=== PATIENT | male | born 1985 | race Caucasian/White ===

== ENCOUNTER 2018-12-24 21:35 | Emergency (ER) | payer BC ==
[2018-12-24 21:50] VITALS: TEMP 98.6
[2018-12-24] MEDS ORDERED: SODIUM CHLORIDE 0.9% 1,000 ML IV STA (22:44)
[2018-12-24] MEDS ORDERED: KETOROLAC 30 MG/ML 1 ML VIAL IVP STA (22:45)
[2018-12-24] MEDS ORDERED: ONDANSETRON 4 MG/2 ML VIAL IVP STA (22:45)
[2018-12-24 23:16] LABS: Basophils # (A) 0.1 k/uL (0-0.2); Basophils % (A) 1 %; Eosinophils # (A) 0.4 k/uL (0-0.7); Eosinophils % (A) 3 %; HCT 49.5 % (39.0-53.0); HGB 16.6 gm/dL (13.0-17.5); Lymphocytes # (A) 3.2 k/uL (1.0-4.8); Lymphocytes % (A) 31 %; MCHC 33.6 g/dL (31.0-37.0); MCV 89.2 fL (80.0-100.0); Mean Platelet Volume 6.7; Monocytes # (A) 0.7 k/uL (0-1.0); Monocytes % (A) 7 %; Neutrophils % (A) 57 %; Platelet Count 238 k/uL (150-450); RBC 5.55 m/uL (4.30-5.90); RDW 12.8 % (11.5-15.5); WBC 10.5 k/uL (3.8-10.6)
[2018-12-24 23:23] LABS: Appearance,Urine Clear (Clear); Bilirubin,Urine Negative (Negative); Blood,Urine Negative (Negative); Color,Urine Colorless; Glucose,Urine (UA) Negative (Negative); Ketones,Urine Negative (Negative); Leukocyte Esterase,Urine Negative (Negative); Nitrite,Urine Negative (Negative); PH, Urine 5.5 (5.0-8.0); Protein,Urine Negative (Negative); Specific Gravity,Urine 1.003 (1.001-1.035); Urobilinogen,Urine <2.0 mg/dL (<2.0)
[2018-12-24 23:42] LABS: ALT 72 U/L (21-72); AST 46 U/L (17-59); African American GFR (CKD) >90 (>60 ml/min/1.73 sqM); Albumin 4.9 g/dL (3.5-5.0); Alkaline Phosphatase 60 U/L (38-126); Amylase 103 U/L (30-110); Anion Gap 15 mmol/L; Blood Urea Nitrogen 13 mg/dL (9-20); Calcium 9.2 mg/dL (8.4-10.2); Carbon Dioxide 23 mmol/L (22-30); Chloride 101 mmol/L (98-107); Glucose 90 mg/dL (74-99); Lipase 1046 U/L (23-300); Potassium 4.2 mmol/L (3.5-5.1); Sodium 139 mmol/L (137-145); Total Bilirubin 0.5 mg/dL (0.2-1.3); Total Protein 8.1 g/dL (6.3-8.2)
[2018-12-24] MEDS ORDERED: MORPHINE SULFATE 4 MG/ML SYRINGE IVP STA (23:52)
[2018-12-24] MEDS ORDERED: SODIUM CHLORIDE 0.9% 1,000 ML IV ONE (23:52)
--- NOTE | 2018-12-24 23:59 | ED ---
Abdominal Pain HPI - General Chief Complaint: Abdominal Pain Stated Complaint: back/abd pain Time Seen by Provider: 12/24/18 21:57 Source: patient Mode of arrival: ambulatory Limitations: no limitations - History of Present Illness Initial Comments: 33-year-old male patient presents the emergency department today for evaluation of mid thoracic back pain is radiating around to his abdomen. Patient states his been going on for the last 9 days. Patient states that he has been able to eat and drink without difficulty. Patient states that today the pain become unbearable so presented here for further evaluation. Patient denies any history of similar symptoms. He denies any radiation to his legs. He denies any nausea, vomiting, constipation, diarrhea. States he is urinating without difficulty. Denies fever or chills with this. States he has had left inguinal hernia surgery but no other abdominal surgeries. Denies taking any medication. Does admit to drinking 12 beers per night. Denies any street drug use. Patient denies any recent rash, shortness breath, chest pain, numbness, tingling, dizziness, weakness, hematuria, dysuria, urinary urgency, urinary frequency, headache, visual changes, or any other complaints. - Related Data Home Medications Medication Instructions Recorded Confirmed Unable To Assess [Unable to Assess] 12/24/18 12/24/18 Allergies Allergy/AdvReac Type Severity Reaction Status Date / Time Sulfa (Sulfonamide Allergy Swelling Verified 12/24/18 21:50 Antibiotics) Review of Systems ROS Statement: Those systems with pertinent positive or pertinent negative responses have been documented in the HPI. ROS Other: All systems not noted in ROS Statement are negative. Past Medical History Past Medical History: Hypertension History of Any Multi-Drug Resistant Organisms: None Reported Past Surgical History: Hernia Repair Past Psychological History: No Psychological Hx Reported Smoking Status: Current every day smoker Past Alcohol Use History: Daily Past Drug Use History: Marijuana General Exam Limitations: no limitations General appearance: alert, in no apparent distress, other (Physical well- developed, well-nourished adult male patient in no acute distress. Vital signs upon presentation are temperature 98.6F, pulse 89, respirations 20, blood pressure 163/82, pulse ox 97% on room air.) Eye exam: Present: normal appearance, PERRL, EOMI. Absent: scleral icterus, conjunctival injection, periorbital swelling ENT exam: Present: normal exam, normal oropharynx, mucous membranes moist Respiratory exam: Present: normal lung sounds bilaterally. Absent: respiratory distress, wheezes, rales, rhonchi, stridor Cardiovascular Exam: Present: regular rate, normal rhythm, normal heart sounds. Absent: systolic murmur, diastolic murmur, rubs, gallop, clicks GI/Abdominal exam: Present: soft, normal bowel sounds. Absent: distended, tenderness, guarding, rebound, rigid Neurological exam: Present: alert, oriented X3, CN II-XII intact Psychiatric exam: Present: normal affect, normal mood Skin exam: Present: warm, dry, intact, normal color. Absent: rash Course Vital Signs 12/24/18 12/25/18 21:46 01:16 Temperature 98.6 F Pulse Rate 89 80 Respiratory 20 16 Rate Blood Pressure 163/82 138/82 O2 Sat by Pulse 97 98 Oximetry Medical Decision Making - Medical Decision Making 33-year-old male patient presents to the emergency department today for evaluation of mid back pain that radiates to his abdomen. Physical examination is unremarkable. Abdomen is soft and nontender. He is afebrile, vital signs. Labs reviewed and did reveal elevated lipase at 1046. CT abdomen and pelvis was obtained and showed no acute abnormalities. No evidence of pancreatitis on the scan. I did discuss findings and results with the patient. Did recommend admission for IV hydration and pain management. Patient refused admission stating that he had to work tomorrow. I did discuss risks of discharge including worsening of his condition, infection, and . Patient verbalizes understanding of risks and would like to be discharged. He is instructed to maintain clear liquid diet. He is instructed to avoid alcohol use is instructed to follow-up with a primary care physician for recheck as soon as possible. Return parameters were discussed in detail. He verbalizes understanding and agrees with this plan. - Lab Data Result diagrams: 12/24/18 22:10 12/24/18 22:10 Lab Results 12/24/18 12/24/18 12/24/18 Range/Units 22:10 22:10 22:10 WBC 10.5 (3.8-10.6) k/uL RBC 5.55 (4.30-5.90) m/uL Hgb 16.6 (13.0-17.5) gm/dL Hct 49.5 (39.0-53.0) % MCV 89.2 (80.0-100.0) fL MCH 30.0 (25.0-35.0) pg MCHC 33.6 (31.0-37.0) g/dL RDW 12.8 (11.5-15.5) % Plt Count 238 (150-450) k/uL Neutrophils % 57 % Lymphocytes % 31 % Monocytes % 7 % Eosinophils % 3 % Basophils % 1 % Neutrophils # 6.0 (1.3-7.7) k/uL Lymphocytes # 3.2 (1.0-4.8) k/uL Monocytes # 0.7 (0-1.0) k/uL Eosinophils # 0.4 (0-0.7) k/uL Basophils # 0.1 (0-0.2) k/uL Sodium 139 (137-145) mmol/L Potassium 4.2 (3.5-5.1) mmol/L Chloride 101 (98-107) mmol/L Carbon Dioxide 23 (22-30) mmol/L Anion Gap 15 mmol/L BUN 13 (9-20) mg/dL Creatinine 0.84 (0.66-1.25) mg/dL Est GFR (CKD-EPI)AfAm >90 (>60 ml/min/1.73 sqM) Est GFR (CKD-EPI)NonAf >90 (>60 ml/min/1.73 sqM) Glucose 90 (74-99) mg/dL Calcium 9.2 (8.4-10.2) mg/dL Total Bilirubin 0.5 (0.2-1.3) mg/dL AST 46 (17-59) U/L ALT 72 (21-72) U/L Alkaline Phosphatase 60 (38-126) U/L Total Protein 8.1 (6.3-8.2) g/dL Albumin 4.9 (3.5-5.0) g/dL Amylase 103 (30-110) U/L Lipase 1046 H (23-300) U/L Urine Color Colorless Urine Appearance Clear (Clear) Urine pH 5.5 (5.0-8.0) Ur Specific [place] 1.003 (1.001-1.035) Urine Protein Negative (Negative) Urine Glucose (UA) Negative (Negative) Urine Ketones Negative (Negative) Urine Blood Negative (Negative) Urine Nitrite Negative (Negative) Urine Bilirubin Negative (Negative) Urine Urobilinogen <2.0 (<2.0) mg/dL Ur Leukocyte Esterase Negative (Negative) - Radiology Data Radiology results: report reviewed, image reviewed CT abdomen and pelvis was obtained. Report was reviewed in its entirety. Impression by Dr. Watts shows no acute findings. Disposition Clinical Impression: Pancreatitis Disposition: Left Against Medical Advice Condition: Stable Instructions (If sedation given, give patient instructions): Pancreatitis (ED), Low Fat Diet (ED), Clear Liquid Diet (ED) Additional Instructions: Increase fluids. Especially water. Follow-up through primary care physician for recheck in 1-2 days. Return to the emergency department immediately for any new, worsening, or concerning symptoms. Is patient prescribed a controlled substance at d/c from ED?: No Referrals: Gary Dee DO [Primary Care Provider] - 1-2 days Time of Disposition: 00:38
--- NOTE | 2018-12-25 00:05 | CT ---
EXAM: CT Abdomen and Pelvis With Intravenous Contrast CLINICAL HISTORY: abdominal pain TECHNIQUE: Axial computed tomography images of the abdomen and pelvis with intravenous contrast. CTDI is 0.085, 0.085, 50.9, 16.5 mGy and DLP is 1504.2 mGy-cm. This CT exam was performed using one or more of the following dose reduction techniques: automated exposure control, adjustment of the mA and/or kV according to patient size, and/or use of iterative reconstruction technique. COMPARISON: No relevant prior studies available. FINDINGS: Lung bases: Unremarkable. No mass. No consolidation. ABDOMEN: Liver: Unremarkable. Gallbladder and bile ducts: Unremarkable. No calcified stones. Pancreas: Unremarkable. Spleen: Unremarkable. Adrenals: Unremarkable. Kidneys and ureters: Unremarkable. No solid mass. No hydronephrosis. Stomach and bowel: Unremarkable. Bowel is nondilated. PELVIS: Appendix: No findings to suggest acute appendicitis. Bladder: Unremarkable. Reproductive: Unremarkable as visualized. ABDOMEN and PELVIS: Intraperitoneal space: Unremarkable. No free air. Bones/joints: Sclerosis of the L5 vertebral bodies and small inferior endplate erosions are favored to be degenerative. Bilateral L4 pars defects. No acute fracture. Soft tissues: Unremarkable. Vasculature: Unremarkable. No abdominal aortic aneurysm. Lymph nodes: Unremarkable. IMPRESSION: No acute findings.
[2018-12-25 01:17] VITALS: BP 138/82; PULSE 80; RESP 16
== END 2018-12-25 01:17 | disposition left against medical advice (07) ==
LOC: EC 21:35
DX: K85.90 Acute pancreatitis without necrosis or infection, unspecified (principal); M54.6 Pain in thoracic spine; R74.9 Abnormal serum enzyme level, unspecified; F17.200 Nicotine dependence, unspecified, uncomplicated; Z88.2 Allergy status to sulfonamides; Z98.890 Other specified postprocedural states
CPT/HCPCS: 36415; 80053; 82150; 83690; 85025; 81003; 74177; 99284; 96374; 96375 ×2; 96361 ×2; J2405; J1885; Q9967

== ENCOUNTER 2018-12-26 08:12 | Emergency (ER) | payer BC ==
--- NOTE | 2018-12-26 08:34 | ED ---
Abdominal Pain HPI - General Chief Complaint: Abdominal Pain Stated Complaint: flank pain Time Seen by Provider: 12/26/18 08:17 Source: patient, RN notes reviewed, old records reviewed Limitations: no limitations - History of Present Illness Initial Comments: This is a 33-year-old male who was seen here 2 days ago and diagnosed with pancreatitis he does admit that he does drink. On my questioning he states about 6 beers a day and reviewing the chart he is admitted to 12 beers a day. He apparently was offered admission at that time did not want to be admitted he is back today with complaints of sharp right upper quadrant pain it radiates down to the right flank area. She is get worse with sitting better with upright positioning. No fevers chills nausea vomiting sweats no other symptoms at this time he did state he had some trouble bowel movements. No reports of bleeding. No other modifying factors at this time he does have a family history of gallbladder disease on his mother's side. MD Complaint: flank pain - Related Data Home Medications Medication Instructions Recorded Confirmed amLODIPine BESYLATE/BENAZEPRIL 1 cap PO DAILY 12/26/18 12/26/18 [amLODIPine BESYLATE/BENAZEPRIL 5-20 MG] Previous Rx's Medication Instructions Recorded Cyclobenzaprine [Flexeril] 10 mg PO TID #14 tab 12/26/18 Ibuprofen 800 mg PO Q6HR PRN #20 tablet 12/26/18 Allergies Allergy/AdvReac Type Severity Reaction Status Date / Time Sulfa (Sulfonamide Allergy Swelling Verified 12/26/18 08:28 Antibiotics) shellfish derived [Shellfish] AdvReac Dyspnea Verified 12/26/18 08:28 Review of Systems ROS Statement: Those systems with pertinent positive or pertinent negative responses have been documented in the HPI. ROS Other: All systems not noted in ROS Statement are negative. Past Medical History Past Medical History: Hypertension History of Any Multi-Drug Resistant Organisms: None Reported Past Surgical History: Hernia Repair Past Psychological History: No Psychological Hx Reported Smoking Status: Current every day smoker Past Alcohol Use History: Daily Past Drug Use History: Marijuana General Exam - General Exam Comments Initial Comments: This is a well-developed well-nourished awake alert oriented times 3 male Limitations: no limitations General appearance: alert, in no apparent distress Head exam: Present: atraumatic, normocephalic, normal inspection Eye exam: Present: normal appearance, PERRL, EOMI. Absent: scleral icterus, conjunctival injection, periorbital swelling ENT exam: Present: normal exam, mucous membranes moist Neck exam: Present: normal inspection. Absent: tenderness, meningismus, lymphadenopathy Respiratory exam: Present: normal lung sounds bilaterally. Absent: respiratory distress, wheezes, rales, rhonchi, stridor Cardiovascular Exam: Present: regular rate, normal rhythm, normal heart sounds. Absent: systolic murmur, diastolic murmur, rubs, gallop, clicks GI/Abdominal exam: Present: soft, tenderness (Quadrant tenderness palpation no guarding no rebound), normal bowel sounds. Absent: distended, guarding, rebound, rigid, bruit, pulsatile mass Rectal exam: Present: deferred Extremities exam: Present: normal inspection, full ROM, normal capillary refill. Absent: tenderness, pedal edema, joint swelling, calf tenderness Back exam: Present: normal inspection, full ROM, CVA tenderness (R). Absent: rash noted Neurological exam: Present: alert, oriented X3, CN II-XII intact Psychiatric exam: Present: normal affect, normal mood Skin exam: Present: warm, dry, intact, normal color. Absent: rash Course Vital Signs 12/26/18 12/26/18 08:13 10:19 Temperature 98.6 F 98.3 F Pulse Rate 80 81 Respiratory 18 16 Rate Blood Pressure 135/99 146/91 O2 Sat by Pulse 98 96 Oximetry Medical Decision Making - Medical Decision Making Patient does present with right flank pain around quadrant abdominal pain. At this time it does appear to be musculoskeletal in origin. We did a long discussion with the patient regarding the findings he is to increase his oral fluids he'll be placed on anti-inflammatories as well as muscle relaxers. He is a follow-up with Dr. Dee and return when necessary. His lipase level has normalized. We did discuss caution with alcohol. - Lab Data Result diagrams: 12/26/18 08:35 12/26/18 08:35 Lab Results 12/26/18 12/26/18 12/26/18 Range/Units 08:30 08:35 08:35 WBC 8.0 (3.8-10.6) k/uL RBC 5.57 (4.30-5.90) m/uL Hgb 16.9 (13.0-17.5) gm/dL Hct 49.6 (39.0-53.0) % MCV 89.1 (80.0-100.0) fL MCH 30.4 (25.0-35.0) pg MCHC 34.1 (31.0-37.0) g/dL RDW 12.6 (11.5-15.5) % Plt Count 219 (150-450) k/uL Neutrophils % 62 % Lymphocytes % 25 % Monocytes % 7 % Eosinophils % 4 % Basophils % 0 % Neutrophils # 5.0 (1.3-7.7) k/uL Lymphocytes # 2.0 (1.0-4.8) k/uL Monocytes # 0.6 (0-1.0) k/uL Eosinophils # 0.3 (0-0.7) k/uL Basophils # 0.0 (0-0.2) k/uL Sodium 137 (137-145) mmol/L Potassium 4.5 (3.5-5.1) mmol/L Chloride 103 (98-107) mmol/L Carbon Dioxide 26 (22-30) mmol/L Anion Gap 8 mmol/L BUN 9 (9-20) mg/dL Creatinine 0.75 (0.66-1.25) mg/dL Est GFR (CKD-EPI)AfAm >90 (>60 ml/min/1.73 sqM) Est GFR (CKD-EPI)NonAf >90 (>60 ml/min/1.73 sqM) Glucose 99 (74-99) mg/dL Calcium 9.4 (8.4-10.2) mg/dL Total Bilirubin 0.6 (0.2-1.3) mg/dL AST 32 (17-59) U/L ALT 65 (21-72) U/L Alkaline Phosphatase 64 (38-126) U/L Creatine Kinase 221 H (55-170) U/L Total Protein 7.7 (6.3-8.2) g/dL Albumin 4.6 (3.5-5.0) g/dL Amylase 59 (30-110) U/L Lipase 89 (23-300) U/L Urine Color Colorless Urine Appearance Clear (Clear) Urine pH 6.5 (5.0-8.0) Ur Specific [place] 1.003 (1.001-1.035) Urine Protein Negative (Negative) Urine Glucose (UA) Negative (Negative) Urine Ketones Negative (Negative) Urine Blood Negative (Negative) Urine Nitrite Negative (Negative) Urine Bilirubin Negative (Negative) Urine Urobilinogen <2.0 (<2.0) mg/dL Ur Leukocyte Esterase Negative (Negative) - Radiology Data Radiology results: report reviewed (I did review the imaging and report no acute findings.), image reviewed Disposition Clinical Impression: Musculoskeletal pain Disposition: HOME SELF-CARE Condition: Good Instructions (If sedation given, give patient instructions): Musculoskeletal P ain (ED) Prescriptions: Cyclobenzaprine [Flexeril] 10 mg PO TID #14 tab Ibuprofen 800 mg PO Q6HR PRN #20 tablet PRN Reason: Pain Is patient prescribed a controlled substance at d/c from ED?: No Referrals: Gary Dee DO [Primary Care Provider] - 1-2 days
[2018-12-26 08:55] LABS: Appearance,Urine Clear (Clear); Bilirubin,Urine Negative (Negative); Blood,Urine Negative (Negative); Color,Urine Colorless; Glucose,Urine (UA) Negative (Negative); Ketones,Urine Negative (Negative); Leukocyte Esterase,Urine Negative (Negative); Nitrite,Urine Negative (Negative); PH, Urine 6.5 (5.0-8.0); Protein,Urine Negative (Negative); Specific Gravity,Urine 1.003 (1.001-1.035); Urobilinogen,Urine <2.0 mg/dL (<2.0)
[2018-12-26 08:58] LABS: Basophils % (A) 0 %; Eosinophils # (A) 0.3 k/uL (0-0.7); Eosinophils % (A) 4 %; HCT 49.6 % (39.0-53.0); HGB 16.9 gm/dL (13.0-17.5); Lymphocytes % (A) 25 %; MCH 30.4 pg (25.0-35.0); MCHC 34.1 g/dL (31.0-37.0); MCV 89.1 fL (80.0-100.0); Mean Platelet Volume 6.4; Monocytes # (A) 0.6 k/uL (0-1.0); Monocytes % (A) 7 %; Neutrophils % (A) 62 %; Platelet Count 219 k/uL (150-450); RBC 5.57 m/uL (4.30-5.90); RDW 12.6 % (11.5-15.5)
[2018-12-26 09:09] LABS: ALT 65 U/L (21-72); AST 32 U/L (17-59); African American GFR (CKD) >90 (>60 ml/min/1.73 sqM); Albumin 4.6 g/dL (3.5-5.0); Alkaline Phosphatase 64 U/L (38-126); Amylase 59 U/L (30-110); Anion Gap 8 mmol/L; Blood Urea Nitrogen 9 mg/dL (9-20); Calcium 9.4 mg/dL (8.4-10.2); Carbon Dioxide 26 mmol/L (22-30); Chloride 103 mmol/L (98-107); Creatine Kinase 221 U/L (55-170); Glucose 99 mg/dL (74-99); Lipase 89 U/L (23-300); Potassium 4.5 mmol/L (3.5-5.1); Sodium 137 mmol/L (137-145); Total Bilirubin 0.6 mg/dL (0.2-1.3); Total Protein 7.7 g/dL (6.3-8.2)
--- NOTE | 2018-12-26 09:18 | US ---
EXAMINATION TYPE: US gallbladder DATE OF EXAM: 12/26/2018 COMPARISON: CT 2 days ago. CLINICAL HISTORY: Pain. RUQ pain. EXAM MEASUREMENTS: Liver Length: 20.6 cm Gallbladder Wall: 0.1 cm CBD: 0.2 cm CHD: 0.3 cm Right Kidney: 12.5 x 6.2 x 6.6 cm Pancreas: Obscured by bowel gas. Body and tail not visualized due to overlying bowel gas Liver: Slightly echogenic and coarse. Enlarged in size. Gallbladder: wnl Evidence for sonographic Cavazos's sign: neg CBD: wnl Right Kidney: wnl Pancreas not well seen on ultrasound appeared within normal limits on recent CT. Liver is heterogeneo usly hyperechoic consistent with diffuse fatty infiltration as seen on the recent CT. Gallbladder fel t within normal limits. Right kidney shows no hydronephrosis. IMPRESSION: No shadowing mobile gallstones or ultrasonographic evidence for acute cholecystitis.
--- NOTE | 2018-12-26 10:03 | XR ---
EXAMINATION TYPE: XR chest 2V DATE OF EXAM: 12/26/2018 COMPARISON: NONE HISTORY: Cough. Right-sided pain. TECHNIQUE: Frontal and lateral views of the chest are obtained. FINDINGS: There is no focal air space opacity, pleural effusion, or pneumothorax seen. The cardiac silhouette size is within normal limits. The osseous structures are intact. IMPRESSION: No acute process.
[2018-12-26] MEDS ORDERED: KETOROLAC 30 MG/ML 1 ML VIAL IVP STA (10:07)
[2018-12-26 10:20] VITALS: BP 146/91; PULSE 81; RESP 16; TEMP 98.3
--- NOTE | 2018-12-26 10:50 | ED ---
Medical Decision Making - Lab Data Result diagrams: 12/26/18 08:35 12/26/18 08:35 Lab Results 12/26/18 12/26/18 12/26/18 Range/Units 08:30 08:35 08:35 WBC 8.0 (3.8-10.6) k/uL RBC 5.57 (4.30-5.90) m/uL Hgb 16.9 (13.0-17.5) gm/dL Hct 49.6 (39.0-53.0) % MCV 89.1 (80.0-100.0) fL MCH 30.4 (25.0-35.0) pg MCHC 34.1 (31.0-37.0) g/dL RDW 12.6 (11.5-15.5) % Plt Count 219 (150-450) k/uL Neutrophils % 62 % Lymphocytes % 25 % Monocytes % 7 % Eosinophils % 4 % Basophils % 0 % Neutrophils # 5.0 (1.3-7.7) k/uL Lymphocytes # 2.0 (1.0-4.8) k/uL Monocytes # 0.6 (0-1.0) k/uL Eosinophils # 0.3 (0-0.7) k/uL Basophils # 0.0 (0-0.2) k/uL Sodium 137 (137-145) mmol/L Potassium 4.5 (3.5-5.1) mmol/L Chloride 103 (98-107) mmol/L Carbon Dioxide 26 (22-30) mmol/L Anion Gap 8 mmol/L BUN 9 (9-20) mg/dL Creatinine 0.75 (0.66-1.25) mg/dL Est GFR (CKD-EPI)AfAm >90 (>60 ml/min/1.73 sqM) Est GFR (CKD-EPI)NonAf >90 (>60 ml/min/1.73 sqM) Glucose 99 (74-99) mg/dL Calcium 9.4 (8.4-10.2) mg/dL Total Bilirubin 0.6 (0.2-1.3) mg/dL AST 32 (17-59) U/L ALT 65 (21-72) U/L Alkaline Phosphatase 64 (38-126) U/L Creatine Kinase 221 H (55-170) U/L Total Protein 7.7 (6.3-8.2) g/dL Albumin 4.6 (3.5-5.0) g/dL Amylase 59 (30-110) U/L Lipase 89 (23-300) U/L Urine Color Colorless Urine Appearance Clear (Clear) Urine pH 6.5 (5.0-8.0) Ur Specific [place] 1.003 (1.001-1.035) Urine Protein Negative (Negative) Urine Glucose (UA) Negative (Negative) Urine Ketones Negative (Negative) Urine Blood Negative (Negative) Urine Nitrite Negative (Negative) Urine Bilirubin Negative (Negative) Urine Urobilinogen <2.0 (<2.0) mg/dL Ur Leukocyte Esterase Negative (Negative) Disposition Clinical Impression: Musculoskeletal pain Disposition: HOME SELF-CARE Condition: Good Instructions (If sedation given, give patient instructions): Musculoskeletal Pain (ED) Prescriptions: Cyclobenzaprine [Flexeril] 10 mg PO TID #14 tab Ibuprofen 800 mg PO Q6HR PRN #20 tablet PRN Reason: Pain methylPREDNISolone Dose Pack [Medrol Dose Pack] 4 mg PO DIRECTED #21 package Is patient prescribed a controlled substance at d/c from ED?: No Referrals: Gary Dee DO [Primary Care Provider] - 1-2 days
== END 2018-12-26 10:51 | disposition home or self-care (01) ==
LOC: EC 08:12
DX: M79.18 Myalgia, other site (principal); R10.11 Right upper quadrant pain; I10 Essential (primary) hypertension; F17.200 Nicotine dependence, unspecified, uncomplicated; Z79.899 Other long term (current) drug therapy; Z88.2 Allergy status to sulfonamides; Z91.013 Allergy to seafood; Z87.19 Personal history of other diseases of the digestive system
CPT/HCPCS: 36415; 80053; 82150; 82550; 83690; 85025; 81003; 71046; 76705; 96374; 99285; J1885

== ENCOUNTER 2022-12-21 20:45 | Emergency (ER) | payer MEDICAID ==
[2022-12-21] MEDS ORDERED: BACITRACIN OINT 1 EACH PACKET TOPICAL ONE (21:53)
--- NOTE | 2022-12-21 22:07 | ED ---
General Adult HPI - General Chief complaint: Wound/Laceration Stated complaint: Right arm laceration Source: patient Mode of arrival: ambulatory Limitations: no limitations - History of Present Illness Initial comments: 37-year-old male presents to ED with a chief complaint of laceration. Patient states the glass table accidentally broke and a shard of glass cut his right forearm. Denies any other injury at this time. Tetanus up-to-date. Denies chest pain or shortness of breath. No other complaints. - Related Data Home Medications Medication Instructions Recorded Confirmed amLODIPine BESYLATE/BENAZEPRIL 1 cap PO DAILY 12/26/18 12/26/18 [amLODIPine BESYLATE/BENAZEPRIL 5-20 MG] Previous Rx's Medication Instructions Recorded Cyclobenzaprine [Flexeril] 10 mg PO TID #14 tab 12/26/18 Ibuprofen 800 mg PO Q6HR PRN #20 tablet 12/26/18 methylPREDNISolone Dose Pack 4 mg PO DIRECTED #21 package 12/26/18 [Medrol Dose Pack] Allergies Allergy/AdvReac Type Severity Reaction Status Date / Time Sulfa (Sulfonamide Allergy Swelling Verified 12/21/22 20:51 Antibiotics) shellfish derived [Shellfish] AdvReac Dyspnea Verified 12/21/22 20:51 Review of Systems ROS Statement: Those systems with pertinent positive or pertinent negative responses have been documented in the HPI. ROS Other: All systems not noted in ROS Statement are negative. Past Medical History Past Medical History: Asthma, Hyperlipidemia, Hypertension History of Any Multi-Drug Resistant Organisms: None Reported Past Surgical History: Hernia Repair Past Psychological History: No Psychological Hx Reported Smoking Status: Current every day smoker Past Alcohol Use History: Daily Past Drug Use History: Marijuana General Exam Limitations: no limitations General appearance: alert, in no apparent distress Head exam: Present: atraumatic, normocephalic Eye exam: Present: normal appearance Respiratory exam: Present: wheezes (Inspiratory and expiratory wheezing in bilateral lung chan) Cardiovascular Exam: Present: regular rate, normal rhythm GI/Abdominal exam: Present: soft Extremities exam: Present: other (Strength 5/5 bilateral upper and lower extremities. Sensation intact. Radial pulses 2+.) Neurological exam: Present: alert, oriented X3 Skin exam: Present: warm, dry Course Vital Signs 12/21/22 12/21/22 20:46 22:08 Temperature 98.5 F 97.9 F Pulse Rate 87 90 Respiratory 18 20 Rate Blood Pressure 133/84 O2 Sat by Pulse 96 95 Oximetry Procedures - Laceration Laceration #1 Site: upper extremity Size (cm): 7 Description: linear Depth: simple, single layer Sedation/Analgesia: none (Patient requested no anesthetic) Pre-repair: wound explored, irrigated extensively Size of Sutures: 4-0 Number of Sutures: 10 Technique: simple, interrupted Patient Tolerated Procedure: well, no complications Medical Decision Making - Medical Decision Making Was pt. sent in by a medical professional or institution (, RENAE, HEAVY FORGER HELPER, urgent care, hospital, or long-term...) When possible be specific @ -No Did you speak to anyone other than the patient for history (EMS, parent, family, police, friend...)? What history was obtained from this source @ -No Did you review nursing and triage notes (agree or disagree)? Why? @ -I reviewed and agree with nursing and triage notes Were old charts reviewed (outside hosp., previous admission, EMS record, old EKG, old radiological studies, urgent care reports/EKG's, long-term records)? Report findings @ -No old charts were reviewed Differential Diagnosis (chest pain, altered mental status, abdominal pain women, abdominal pain men, vaginal bleeding, weakness, fever, dyspnea, syncope, headache, dizziness, GI bleed, back pain, seizure, CVA, palpatations, mental health, musculoskeletal)? @ -Acute arterial injury, acute nerve injury, fracture. This is not meant to be an all-inclusive list EKG interpreted by me (3pts min.). @ -None X-rays interpreted by me (1pt min.). @ -None done CT interpreted by me (1pt min.). @ -None done U/S interpreted by me (1pt. min.). @ -None done What testing was considered but not performed or refused? (CT, X-rays, U/S, labs)? Why? @ -None What meds were considered but not given or refused? Why? @ -None Did you discuss the management of the patient with other professionals (professionals i.e. RENAE Olmos, HEAVY FORGER HELPER, lab, RT, psych nurse, perinatal social worker, car servicer, teacher, prison officer, case assembler)? Give summary @ -No Was smoking cessation discussed for >3mins.? @ -No Was critical care preformed (if so, how long)? @ -No Were there social determinants of health that impacted care today? How? (Homelessness, low income, unemployed, alcoholism, drug addiction, transportation, low edu. Level, literacy, decrease access to med. care, fci, rehab)? @ -No Was there de-escalation of care discussed even if they declined (Discuss DNR or withdrawal of care, Hospice)? DNR status @ -No What co-morbidities impacted this encounter? (DM, HTN, Smoking, COPD, CAD, Cancer, CVA, ARF, Chemo, Hep., AIDS, mental health diagnosis, sleep apnea, morbid obesity)? @ -None Was patient admitted / discharged? Hospital course, mention meds given and route, prescriptions, significant lab abnormalities, going to OR and other pertinent info. @ -Discharge. Patient had laceration repair. Please see procedure note further details. This was covered with bacitracin and loose bandage. Advised proper wound care. Advised return in 7-10 days for suture removal. Discussed return precautions with patient who verbalized agreement. Undiagnosed new problem with uncertain prognosis? @ -No Drug Therapy requiring intensive monitoring for toxicity (Heparin, Nitro, Insulin, Cardizem)? @ -No Were any procedures done? @ -Yes, laceration repair Diagnosis/symptom? @ -Laceration Acute, or Chronic, or Acute on Chronic? @ -Acute Uncomplicated (without systemic symptoms) or Complicated (systemic symptoms)? @ -Uncomplicated Side effects of treatment? @ -No Exacerbation, Progression, or Severe Exacerbation? @ -No Poses a threat to life or bodily function? How? (Chest pain, [place], [place], pneumonia, PE, COPD, DKA, ARF, appy, cholecystitis, CVA, Diverticulitis, Homicidal, Suicidal, threat to staff... and all critical care pts) @ -No Disposition Clinical Impression: Laceration Disposition: HOME SELF-CARE Condition: Good Instructions (If sedation given, give patient instructions): Care For Your Stitches (ED) Additional Instructions: Please return to the Emergency Department if symptoms worsen or any other concerns. Monitor for signs of infection. Please return in 7-10 days for suture removal. Is patient prescribed a controlled substance at d/c from ED?: No Referrals: Gary Dee DO [Primary Care Provider] - 1-2 days Time of Disposition: 22:06
[2022-12-21 22:10] VITALS: BP 133/84; PULSE 90; RESP 20; TEMP 97.9
== END 2022-12-21 22:10 | disposition home or self-care (01) ==
LOC: EC 20:45
DX: S51.811A Laceration without foreign body of right forearm, initial encounter (principal); I10 Essential (primary) hypertension; J45.909 Unspecified asthma, uncomplicated; F17.200 Nicotine dependence, unspecified, uncomplicated; F12.90 Cannabis use, unspecified, uncomplicated; Z79.899 Other long term (current) drug therapy; Z88.2 Allergy status to sulfonamides; Z91.013 Allergy to seafood; W25.XXXA Contact with sharp glass, initial encounter
CPT/HCPCS: 12002; 99283

== ENCOUNTER 2023-04-25 08:40 | Emergency (ER) | payer MEDICAID ==
[2023-04-25 08:55] VITALS: RESP 18
[2023-04-25] MEDS ORDERED: SUCRALFATE 1 GM TAB PO STA (09:19)
--- NOTE | 2023-04-25 09:20 | ED ---
Abdominal Pain HPI - General Chief Complaint: Abdominal Pain Stated Complaint: right side pain Time Seen by Provider: 04/25/23 08:54 Source: patient Mode of arrival: ambulatory Limitations: no limitations - History of Present Illness Initial Comments: The patient's a 29 no gentleman is otherwise healthy presents emergency room today by family for right-sided abdominal pain. Patient states it has started over the last few days. It is worse after eating. He has occasional nausea but denies any vomiting. He denies any fevers. Patient denies any cuts patient diarrhea. Denies a history of gallbladder sheets. He has never had any abdominal surgery. - Related Data Home Medications Medication Instructions Recorded Confirmed amLODIPine BESYLATE/BENAZEPRIL 1 cap PO DAILY 12/26/18 12/26/18 [amLODIPine BESYLATE/BENAZEPRIL 5-20 MG] Previous Rx's Medication Instructions Recorded Cyclobenzaprine [Flexeril] 10 mg PO TID #14 tab 12/26/18 Ibuprofen 800 mg PO Q6HR PRN #20 tablet 12/26/18 methylPREDNISolone Dose Pack 4 mg PO DIRECTED #21 package 12/26/18 [Medrol Dose Pack] Omeprazole [PriLOSEC] 40 mg PO DAILY #30 cap 04/25/23 Sucralfate [Carafate] 1 gm PO TID #20 tablet 04/25/23 Allergies Allergy/AdvReac Type Severity Reaction Status Date / Time Sulfa (Sulfonamide Allergy Swelling Verified 04/25/23 08:48 Antibiotics) shellfish derived [Shellfish] AdvReac Dyspnea Verified 04/25/23 08:48 Review of Systems ROS Statement: Those systems with pertinent positive or pertinent negative responses have been documented in the HPI. ROS Other: All systems not noted in ROS Statement are negative. Past Medical History Past Medical History: Asthma, Hyperlipidemia, Hypertension History of Any Multi-Drug Resistant Organisms: None Reported Past Surgical History: Hernia Repair Past Psychological History: No Psychological Hx Reported Smoking Status: Current every day smoker Past Alcohol Use History: Daily Past Drug Use History: Marijuana General Exam Limitations: no limitations General appearance: alert, in no apparent distress Head exam: Present: atraumatic Eye exam: Present: normal appearance Neck exam: Present: normal inspection Respiratory exam: Present: normal lung sounds bilaterally Cardiovascular Exam: Present: regular rate, normal rhythm GI/Abdominal exam: Present: soft, tenderness (Abdomen right upper quadrant abdominal pain, no rebound tenderness no guarding). Absent: guarding, rebound Extremities exam: Present: full ROM Back exam: Present: full ROM Neurological exam: Present: alert, oriented X3, CN II-XII intact Psychiatric exam: Present: normal affect, normal mood Skin exam: Present: warm, dry Course Vital Signs 04/25/23 04/25/23 04/25/23 08:46 10:18 12:58 Temperature 98.1 F 98 F Pulse Rate 85 73 78 Respiratory 18 18 18 Rate Blood Pressure 143/90 135/86 135/87 O2 Sat by Pulse 98 98 97 Oximetry - Reevaluation(s) Reevaluation #1: 04/25/23 1245 Patient was feeling better after the Carafate and did not want anything else for pain. I discussed lab and imaging results with patient and family at bedside. Ultrasound shows a fatty liver but there is no gallstones cholecystitis or other acute changes. His labs showed no significant changes as well. I discussed finding up with general surgery for follow-up evaluation. Discussed dietary changes to help with the pain. Patient understands [facility] treatment discharge plan. Medical Decision Making - Medical Decision Making Was pt. sent in by a medical professional or institution (, PA, OIL FIELD EQUIPMENT MECHANIC SUPERVISOR, urgent care, hospital, or custodial...) When possible be specific @ -[No] Did you speak to anyone other than the patient for history (EMS, parent, family, police, friend...)? What history was obtained from this source @ -Family at the bedside Did you review nursing and triage notes (agree or disagree)? Why? @ -[I reviewed and agree with nursing and triage notes] Were old charts reviewed (outside hosp., previous admission, EMS record, old EKG, old radiological studies, urgent care reports/EKG's, custodial records)? Report findings @ -[No old charts were reviewed] Differential Diagnosis (chest pain, altered mental status, abdominal pain women, abdominal pain men, vaginal bleeding, weakness, fever, dyspnea, syncope, headache, dizziness, GI bleed, back pain, seizure, CVA, palpatations, mental health, musculoskeletal)? @ -[GERD, gallstones, cholecystitis, gastritis] EKG interpreted by me (3pts min.). @ -[As above] X-rays interpreted by me (1pt min.). @ -[None done] CT interpreted by me (1pt min.). @ -[None done] U/S interpreted by me (1pt. min.). @ -[Ultrasound shows a fatty liver and hepatomegaly without any gallstones cholecystitis or other acute changes. What testing was considered but not performed or refused? (CT, X-rays, U/S, labs)? Why? @ -[Patient is afebrile his vital signs are stable. His labs are unremarkable no leukocytosis therefore a computed tomography scan was not done at today's visit. He does understand W he is to return to emergency room for any worsening pain or development of fevers.hat meds were considered but not given or refused? Why? @ -[None] Did you discuss the management of the patient with other professionals (professionals i.e. , PA, OIL FIELD EQUIPMENT MECHANIC SUPERVISOR, lab, RT, psych nurse, criminal justice social worker, square dance caller, teacher, identification officer, case advocate)? Give summary @ -[No] Was smoking cessation discussed for >3mins.? @ -[No] Was critical care preformed (if so, how long)? @ -[No] Were there social determinants of health that impacted care today? How? (Homelessness, low income, unemployed, alcoholism, drug addiction, transportation, low edu. Level, literacy, decrease access to med. care, care home, rehab)? @ -[No] Was there de-escalation of care discussed even if they declined (Discuss DNR or withdrawal of care, Hospice)? DNR status @ -[No] What co-morbidities impacted this encounter? (DM, HTN, Smoking, COPD, CAD, Cancer, CVA, ARF, Chemo, Hep., AIDS, mental health diagnosis, sleep apnea, morbid obesity)? @ -[None] Was patient admitted / discharged? Hospital course, mention meds given and route, prescriptions, significant lab abnormalities, going to OR and other pertinent info. @ -[Patient's well appearing in the emergency room and stable to follow up as an outpatient. I discussed dietary changes to improve with the fatty liver and abdominal pain. I discussed signs return to the emergency room including but not limited to any worsening pain, development of fever or new concerning symptoms. Undiagnosed new problem with uncertain prognosis? @ -[No] Drug Therapy requiring intensive monitoring for toxicity (Heparin, Nitro, Insulin, Cardizem)? @ -[No] Were any procedures done? @ -[No] Diagnosis/symptom? @ -[dAbdominal pain, fatty liver, hepatomegaly Acute, or Chronic, or Acute on Chronic? @ -ACute Uncomplicated (without systemic symptoms) or Complicated (systemic symptoms)? @ -[default] Side effects of treatment? @ -[No] Exacerbation, Progression, or Severe Exacerbation? @ -[No] Poses a threat to life or bodily function? How? (Chest pain, [place], [place], pneumonia, PE, COPD, DKA, ARF, appy, cholecystitis, CVA, Diverticulitis, Homicidal, Suicidal, threat to staff... and all critical care pts) @ -[No] - Lab Data Result diagrams: 04/25/23 09:10 04/25/23 09:10 Lab Results 04/25/23 04/25/23 04/25/23 Range/Units 09:10 09:10 09:10 WBC 8.0 (3.8-10.6) k/uL RBC 5.58 (4.30-5.90) m/uL Hgb 17.3 (13.0-17.5) gm/dL Hct 50.4 (39.0-53.0) % MCV 90.4 (80.0-100.0) fL MCH 31.0 (25.0-35.0) pg MCHC 34.3 (31.0-37.0) g/dL RDW 12.3 (11.5-15.5) % Plt Count 201 (150-450) k/uL MPV 7.5 Neutrophils % 56 % Lymphocytes % 34 % Monocytes % 5 % Eosinophils % 3 % Basophils % 0 % Neutrophils # 4.5 (1.3-7.7) k/uL Lymphocytes # 2.7 (1.0-4.8) k/uL Monocytes # 0.4 (0-1.0) k/uL Eosinophils # 0.2 (0-0.7) k/uL Basophils # 0.0 (0-0.2) k/uL Sodium 138 (137-145) mmol/L Potassium 4.4 (3.5-5.1) mmol/L Chloride 102 (98-107) mmol/L Carbon Dioxide 28 (22-30) mmol/L Anion Gap 8 mmol/L BUN 10 (9-20) mg/dL Creatinine 0.69 (0.66-1.25) mg/dL Est GFR (CKD-EPI)AfAm >90 (>60 ml/min/1.73 sqM) Est GFR (CKD-EPI)NonAf >90 (>60 ml/min/1.73 sqM) Glucose 110 H (74-99) mg/dL Calcium 9.3 (8.4-10.2) mg/dL Total Bilirubin 0.5 (0.2-1.3) mg/dL AST 37 (17-59) U/L ALT 53 H (4-49) U/L Alkaline Phosphatase 54 (38-126) U/L Total Protein 7.5 (6.3-8.2) g/dL Albumin 4.6 (3.5-5.0) g/dL Lipase 84 (23-300) U/L Urine Color Colorless Urine Appearance Clear (Clear) Urine pH 7.0 (5.0-8.0) Ur Specific [place] 1.008 (1.001-1.035) Urine Protein Negative (Negative) Urine Glucose (UA) Negative (Negative) Urine Ketones Negative (Negative) Urine Blood Negative (Negative) Urine Nitrite Negative (Negative) Urine Bilirubin Negative (Negative) Urine Urobilinogen <2.0 (<2.0) mg/dL Ur Leukocyte Esterase Negative (Negative) - Radiology Data Radiology results: report reviewed, image reviewed Disposition Clinical Impression: Abdominal pain, Fatty liver Disposition: HOME SELF-CARE Condition: Good Instructions (If sedation given, give patient instructions): Acute Abdominal Pain (ED), Abdominal Pain (ED) Prescriptions: Sucralfate [Carafate] 1 gm PO TID #20 tablet Omeprazole [PriLOSEC] 40 mg PO DAILY #30 cap Is patient prescribed a controlled substance at d/c from ED?: No When asked, does pt state using other controlled substances?: No If prescribed controlled substance>3 days was MAPS reviewed?: No Referrals: Gary Dee DO [Primary Care Provider] - 1-2 days Sami Nuñez MD [Medical Doctor] - 1-2 days Time of Disposition: 12:52
[2023-04-25 09:32] LABS: Basophils % (A) 0 %; Eosinophils # (A) 0.2 k/uL (0-0.7); Eosinophils % (A) 3 %; HCT 50.4 % (39.0-53.0); HGB 17.3 gm/dL (13.0-17.5); Lymphocytes # (A) 2.7 k/uL (1.0-4.8); Lymphocytes % (A) 34 %; MCHC 34.3 g/dL (31.0-37.0); MCV 90.4 fL (80.0-100.0); Mean Platelet Volume 7.5; Monocytes # (A) 0.4 k/uL (0-1.0); Monocytes % (A) 5 %; Neutrophils # (A) 4.5 k/uL (1.3-7.7); Neutrophils % (A) 56 %; Platelet Count 201 k/uL (150-450); RBC 5.58 m/uL (4.30-5.90); RDW 12.3 % (11.5-15.5)
[2023-04-25 09:52] LABS: Appearance,Urine Clear (Clear); Bilirubin,Urine Negative (Negative); Blood,Urine Negative (Negative); Color,Urine Colorless; Glucose,Urine (UA) Negative (Negative); Ketones,Urine Negative (Negative); Leukocyte Esterase,Urine Negative (Negative); Nitrite,Urine Negative (Negative); Protein,Urine Negative (Negative); Specific Gravity,Urine 1.008 (1.001-1.035); Urobilinogen,Urine <2.0 mg/dL (<2.0)
[2023-04-25 10:02] LABS: ALT 53 U/L (4-49); AST 37 U/L (17-59); African American GFR (CKD) >90 (>60 ml/min/1.73 sqM); Albumin 4.6 g/dL (3.5-5.0); Alkaline Phosphatase 54 U/L (38-126); Anion Gap 8 mmol/L; Blood Urea Nitrogen 10 mg/dL (9-20); Calcium 9.3 mg/dL (8.4-10.2); Carbon Dioxide 28 mmol/L (22-30); Chloride 102 mmol/L (98-107); Glucose 110 mg/dL (74-99); Lipase 84 U/L (23-300); Non-African American GFR(CKD) >90 (>60 ml/min/1.73 sqM); Potassium 4.4 mmol/L (3.5-5.1); Sodium 138 mmol/L (137-145); Total Bilirubin 0.5 mg/dL (0.2-1.3); Total Protein 7.5 g/dL (6.3-8.2)
[2023-04-25 10:40] VITALS: TEMP 98
--- NOTE | 2023-04-25 10:43 | US ---
EXAMINATION TYPE: US gallbladder DATE OF EXAM: 04/25/2023 COMPARISON: US & CT 2018 CLINICAL INDICATION: Male, 38 years old with history of RUQ pain; RUQ pain, patient not NPO TECHNIQUE: Multiple sonographic images of the right upper quadrant are obtained. FINDINGS: EXAM MEASUREMENTS: Liver Length: 21.6 cm Gallbladder Wall: 0.2 cm CBD: 0.4 cm Right Kidney: 12.8 x 5.9 x 5.9 cm Pancreas: visualized portions wnl, limited by overlying midline bowel gas Liver: enlarged, attenuating, mildly heterogeneous Gallbladder: wnl Evidence for sonographic Cavazos's sign: no CBD: visualized portions wnl, limited by overlying bowel gas Right Kidney: wnl IMPRESSION: 1. Hepatomegaly. There may be some mild fatty infiltration. 2. No suspicious acute ultrasound abnormalities within the visualized portions of the abdomen.
[2023-04-25] MEDS ORDERED: MORPHINE SULFATE 4 MG/ML SYRINGE IVP STA (12:22)
[2023-04-25] MEDS ORDERED: ONDANSETRON 4 MG/2 ML VIAL IVP STA (12:22)
[2023-04-25 13:12] VITALS: BP 135/87; PULSE 78
== END 2023-04-25 12:59 | disposition home or self-care (01) ==
LOC: EC 08:40
DX: K76.0 Fatty (change of) liver, not elsewhere classified (principal); J45.909 Unspecified asthma, uncomplicated; I10 Essential (primary) hypertension; F17.200 Nicotine dependence, unspecified, uncomplicated; F12.90 Cannabis use, unspecified, uncomplicated; Z79.899 Other long term (current) drug therapy; Z88.2 Allergy status to sulfonamides; Z91.013 Allergy to seafood
CPT/HCPCS: 36415; 76705; 80053; 81003; 83690; 85025; 99284